=== PATIENT | male | born 1965 | race Caucasian/White ===

== ENCOUNTER 2018-09-21 13:06 | Emergency (ER) | payer MEDICAID ==
[~2018-09-21] VITALS: Ht 170.2 cm; Wt 77.1 kg
[2018-09-21 13:50] VITALS: BP 140/84
[2018-09-21 14:10] VITALS: BP 140/84
--- NOTE | 2018-09-22 13:51 | Emergency Room Report ---
History of Present Illness General Chief Complaint: Hypertension Source: Patient Present Illness HPI Patient is a 52-year-old male who presented after increased hypertension. Patient had a prior history of hypertension however he had not been any medications. Patient reports having elevated blood pressure. He reports having no prior medical history. He states he previously been taking EMILI inhibitor but had been taken off. He denies any severe headache or vomiting. He denies any visual changes. Allergies: Coded Allergies: No Known Allergies (Unverified , 09/21/18) Patient History Reviewed Nursing Documentation: PMH: Agreed; PSxH: Agreed Nursing Documentation-PMH Past Medical History: No History, Except For Hx Hypertension: Yes Review of Systems All Other Systems: negative except mentioned in HPI Physical Exam Vital Signs Date Time Temp Pulse Resp B/P (MAP) Pulse Ox O2 Delivery O2 Flow Rate FiO2 09/21/18 13:16 98.1 79 20 163/104 98 Room Air General Appearance: well appearing, no apparent distress, alert, GCS 15 Head: normocephalic, atraumatic ENT: hearing grossly normal, normal voice Neck: full range of motion, supple Respiratory: no respiratory distress, speaking full sentences Cardiovascular #1: normal inspection, normal peripheral pulses, regular rate, rhythm Musculoskeletal: no calf tenderness Neurologic: normal gait Psychiatric: mood/affect normal Skin: no rash Medical Decision Making Diagnostic Impression: Primary Impression: Hypertension ER Course Patient presented for hypertension. Differential diagnosis included was not limited to white coat hypertension, medication withdrawal, hypertensive crisis among others. Patient has a benign exam and does not appear to require any further imaging or laboratory testing at this time. The patient was noted to have a spontaneous resolution of elevated blood pressure and at the time of discharge patient's blood pressure was only minimally elevated with a systolic blood pressure of 140. The patient was advised follow-up with his primary care physician for reinitiation of blood pressure medications as needed.The patient is advised to follow up with primary care doctor in 1-2 days. Patient is advised to return if any worsening condition or if any changes in status that are concerning. This report is dictated with [employer] business information consultant software which may occasionally lead to discrepancies related to use of this software. Last Vital Signs Date Time Temp Pulse Resp B/P (MAP) Pulse Ox O2 Delivery O2 Flow Rate FiO2 09/21/18 14:10 98.1 22 140/84 98 Room Air 09/21/18 13:50 79 Status: improved Disposition: HOME, SELF-CARE Condition: Stable Referrals: [facility]ERR[facility] (PCP) Patient Instructions: Hypertension Additional Instructions: Follow up with your regular doctor for recheck of blood pressure and medications as needed. Return if any concerns Austin Mccarthy MD Sep 22, 2018 13:51
== END 2018-09-21 14:10 | disposition home or self-care (01) ==
LOC: EMR 13:50
DX: I10 Essential (primary) hypertension (principal)
CPT/HCPCS: 99282

== ENCOUNTER 2018-09-25 19:50 | Emergency (ER) | payer MEDICAID ==
[~2018-09-25] VITALS: Ht 177.8 cm; Wt 72.6 kg
[2018-09-25 20:10] VITALS: BP 147/96
--- NOTE | 2018-09-25 20:40 | Emergency Room Report ---
History of Present Illness General Chief Complaint: Pain Source: Patient Present Illness HPI Mr. Inman presents with right big toe 01/28, no injury, no fever, gradual onset. Allergies: Coded Allergies: No Known Allergies (Unverified , 09/21/18) Nursing Documentation-[facility] Past Medical History Deferred: Patient Unconscious Past Medical History: No History, Except For Hx Hypertension: Yes Review of Systems Constitutional: Denies: fever, malaise Musculoskeletal: Denies: gout, joint pain, joint swelling Physical Exam Vital Signs Date Time Temp Pulse Resp B/P (MAP) Pulse Ox O2 Delivery O2 Flow Rate FiO2 09/25/18 19:58 98.1 80 18 147/96 98 Room Air Sp02 EP Interpretation: reviewed, normal General Appearance: normal inspection, well appearing, no apparent distress, alert, GCS 15 Eyes: bilateral eye normal inspection Musculoskeletal: other - left foot and right foot without erythema or tenderness or edema, right big toe nail deformed Medical Decision Making Diagnostic Impression: Primary Impression: Toe pain, right ER Course right big toe pain without evidence of gout, fracture, or infection, rx: ibuprofen Last Vital Signs Date Time Temp Pulse Resp B/P (MAP) Pulse Ox O2 Delivery O2 Flow Rate FiO2 09/25/18 20:10 98.1 88 18 147/96 98 Room Air Disposition: HOME, SELF-CARE Condition: Stable Chayito Quezada MD Sep 25, 2018 20:40
[2018-09-25] MEDS ORDERED: IBUPROFEN600 MG ORAL (20:41)
[2018-09-25 20:45] VITALS: BP 147/96
== END 2018-09-25 21:25 | disposition home or self-care (01) ==
LOC: EMR 20:24
DX: M79.674 Pain in right toe(s) (principal)
CPT/HCPCS: 99282